=== PATIENT | female | born 1955 | race Caucasian/White ===

== ENCOUNTER 2019-05-08 09:53 | Day surgery (SDC) | payer OTHER ==
[2019-05-08] MEDS ORDERED: LIDOCAINE 2% (SDV) 5 ML INJ (11:06)
[2019-05-08] MEDS ORDERED: PROPOFOL 20 ML (11:06)
== END 2019-05-08 16:11 | disposition home or self-care (01) ==
LOC: GIL 09:53
DX: R19.5 Other fecal abnormalities (principal); K64.8 Other hemorrhoids
CPT/HCPCS: 45378